=== PATIENT | female | born 1970 | race Hispanic/Latino ===

== ENCOUNTER 2018-09-19 17:19 | Emergency (ER) | payer SELFPAY ==
[2018-09-19] MEDS ORDERED: GUAIFENESIN-DM 200/20 MG 10 ML ONE (17:47)
[2018-09-19] MEDS ORDERED: BENZONATATE 100 MG CAPSULE PO ONE (17:47)
[2018-09-19] MEDS ORDERED: METHYLPREDNISOLONE SOD SUCC 125MG/2ML VIAL ONE (17:47)
[2018-09-19] MEDS ORDERED: IPRATROPIUM/ALBUTEROL SULFATE 3 ML SOLUTION IH ONE (18:04)
== END 2018-09-19 19:28 | disposition home or self-care (01) ==
LOC: EDH 17:19
DX: J20.9 Acute bronchitis, unspecified (principal); E07.9 Disorder of thyroid, unspecified; E11.9 Type 2 diabetes mellitus without complications; Z72.0 Tobacco use
CPT/HCPCS: 71045; 87804 ×2; 94640; 96372; 99284; A4218; J2930

== ENCOUNTER 2018-09-25 20:23 | Emergency (ER) | payer SELFPAY ==
[2018-09-25 21:07] LABS: APPEARANCE,URINE Clear (CLEAR); BILIRUBIN,URINE Negative (NEGATIVE); COLOR,URINE Yellow (YELLOW); GLUCOSE, URINE (UA) Negative (NEGATIVE); KETONES,URINE Negative (NEGATIVE); LEUKOCYTE ESTERASE ,URINE Negative (NEGATIVE); NITRATE,URINE Negative (NEGATIVE); OCCULT BLOOD,URINE Negative (NEGATIVE); PH,URINE 6.5 (5.0-8.0); PROTEIN,URINE Negative (NEGATIVE); UROBILINOGEN,URINE 0.2 mg/dL (0.2-1.0)
[2018-09-25 21:10] LABS: HCG,QUAL RESULT NEGATIVE (NEGATIVE)
[2018-09-25 21:18] LABS: BASOPHILS % (AUTO) 1.8 % (0.0-5.0); EOSINOPHILS % (AUTO) 0.2 % (0.0-8.0); HEMATOCRIT 35.1 % (36-48); LYMPHOCYTES % (AUTO) 32.2 % (21.0-51.0); MEAN CORPUSCULAR HEMOGLOBIN 29.2 pg (27.0-33.0); MEAN CORPUSCULAR HGB CONC 33.2 g/dL (32.0-36.0); MEAN CORPUSCULAR VOLUME 87.8 fL (79-99); MONOCYTES % (AUTO) 6.6 % (3.0-13.0); NEUTROPHILS % (AUTO) 59.2 % (40.0-77.0); PLATELET COUNT (AUTO) 386 K/uL (130-400); RED BLOOD CELL COUNT(AUTO) 3.99 MIL/uL (4.00-5.50); RED CELL DISTRIBUTION WIDTH 14.1 % (11.0-15.5); WHITE BLOOD COUNT (AUTO) 16.3 K/uL (4.8-10.8)
[2018-09-25] MEDS ORDERED: DIPHENHYDRAMINE HCL 25 MG CAPSULE ONE (21:29)
[2018-09-25] MEDS ORDERED: METOCLOPRAMIDE 10 MG TABLET ONE (21:29)
[2018-09-25] MEDS ORDERED: MORPHINE SULFATE 4 MG/1ML SYG ONE (21:30)
[2018-09-25 21:32] LABS: CREATININE 0.8 mg/dL (0.5-1.5)
[2018-09-25 21:41] LABS: ALBUMIN 3.1 g/dL (3.5-5.0); BILIRUBIN,TOTAL 0.4 mg/dL (0.2-1.0); TOTAL PROTEIN, SERUM 7.9 g/dL (6.0-8.3)
[2018-09-25] MEDS ORDERED: SODIUM CHLORIDE 0.9% 1000ML 1,000 ML IV ONE (22:21)
[2018-09-25] MEDS ORDERED: AMOXICILLIN/POTASSIUM CLAV 875-125 TABLET PO ONE (22:22)
== END 2018-09-26 00:39 | disposition home or self-care (01) ==
LOC: EDH 20:23
DX: J01.00 Acute maxillary sinusitis, unspecified (principal); E11.9 Type 2 diabetes mellitus without complications; I10 Essential (primary) hypertension; F41.9 Anxiety disorder, unspecified; Z79.899 Other long term (current) drug therapy; Z98.890 Other specified postprocedural states; Z87.891 Personal history of nicotine dependence
CPT/HCPCS: 36415; 70450; 80053; 81003; 81025; 85025; 85651; 96374; 99284; J2270; J7030; Q0163

== ENCOUNTER 2025-08-24 20:20 | Emergency (ER) | payer SELFPAY ==
[~2025-08-24] VITALS: Ht 160 cm; Wt 90.7 kg
--- NOTE | 2025-08-24 20:33 | EKG ---
[facility] Test Date: 2025-08-24 Test Time: 20:29:57 Pat Name: NELIDA BASS Department: ED Room: Gender: F Telephone Service Adviser: [id number] : 1970 Requested By: PAPA FUNK Order Number: [id number] Reading MD: Jl Prince Measurements Intervals Harris Rate: 78 P: 48 KS: 140 QRS: 18 QRSD: 74 T: 43 QT: 401 QTc: 458 Interpretive Statements Sinus rhythm No previous ECG available for comparison Electronically Signed On 08-25-2025 20:01:27 SERVICE DESK TECHNICIAN by Jl Prince Please click the below link to view image of tracing.
[2025-08-24 20:40] LABS: IMMATURE GRANULOCYTE ABSOLUTE 0.04 K/uL (0-1); NUCLEATED RED BLOOD CELLS 0.0 % (0.0-0.19); PLATELET COUNT (AUTO) 249 K/uL (130-400); RED BLOOD CELL COUNT(AUTO) 4.09 MIL/uL (4.00-5.50); RED CELL DISTRIBUTION WIDTH 13.4 % (11.0-15.5); WHITE BLOOD COUNT (AUTO) 10.8 K/uL (4.8-10.8)
[2025-08-24 20:55] LABS: CREATININE 0.9 mg/dL (0.5-1.0); GLOMERULAR FILTR. RATE CALC 75.0 mL/min (>90); GLUCOSE,RANDOM 205.0 mg/dL (70-105); SODIUM SERUM 135.0 mmol/L (136-145); UREA NITROGEN, BLOOD 13.0 mg/dL (7-18)
[2025-08-24 21:00] LABS: CREATINE KINASE, TOTAL 148.0 U/L (21-232)
[2025-08-24 21:49] LABS: APPEARANCE,URINE CLEAR (CLEAR); GLUCOSE, URINE (UA) NEGATIVE (NEGATIVE); LEUKOCYTE ESTERASE ,URINE NEGATIVE Leu/uL (NEGATIVE); NITRATE,URINE NEGATIVE (NEGATIVE); OCCULT BLOOD,URINE NEGATIVE (NEGATIVE)
[2025-08-24 21:50] LABS: ADD UA MICROSCOPIC NO
--- NOTE | 2025-08-24 22:42 | HMCIMG ---
EXAM: X-Ray Chest, 1 view. CLINICAL HISTORY: Chest pain. COMPARISON: None. FINDINGS: The lungs show no infiltrate or other acute findings. No pleural effusion or pneumothorax. The cardiomediastinal silhouette is within normal limits. No acute osseous abnormality. IMPRESSION: No acute cardiopulmonary pathology is evident. /Tatum
[2025-08-24] MEDS ORDERED: KETO10TA2 PO (23:22)
--- NOTE | 2025-08-24 23:23 | ERN ---
General Chief Complaint: Chest Pain Stated Complaint: CP RADIATING TO NECK AND LEFT SHOULDER. SOB Time Seen by MD: 20:26 Time Seen by Midlevel: 20:26 Source: patient History of Present Illness Initial Comments The patient is a 55-year-old female presenting to the emergency department with left-sided chest pain. That started yesterday and progressively worsened today. Allergies: Coded Allergies: No Known Allergies (Unverified Allergy, Unknown, 08/24/25) Past Medical History Past Medical History: Anxiety, Diabetes-Type II, Hypothyroid Past Surgical History: ROS Dictation CONSTITUTIONAL: Negative except for HPI HEAD/FACE: Negative except for HPI EENT: Negative except for HPI RESPIRATORY: Negative except for HPI GASTROINTESTINAL/ABDOMINAL: Negative except for HPI GENITOURINARY: Negative except for HPI MUSCULOSKELETAL: Negative except for HPI INTEGUMENTARY: Negative except for HPI NEUROLOGICAL/PSYCH: Negative except for HPI HEMATOLOGIC/LYMPHATIC: Negative except for HPI All Systems Negative, Except as noted above. 13 point review of systems assessed and all negative except for above. Physical Exam Physical Exam Dictation Vital Signs reviewed General Appearance: Alert, oriented x 3, no acute distress, well developed, nourished. Head and Face: non-traumatic. Eyes: PERRL, pink conjunctivas, eyelid no trauma, anterior chamber with arcus senilis. Ears: Pinnas intact and no signs of trauma or erythema ear canals clear and no discharge TM no erythema Nose: No discharge, no bleeding. Oropharynx: Mouth normal, tongue pink, pharynx clear,no erythema, tonsils no exudates, no abscesses noted, mucous membrane moist Neck: Supple, non-tender, no thyromegaly, no masses, no JVD, no bruits Breast:Deferred Chest:No tenderness, no crepitus, no paradoxical movement, no retractions Lungs:Clear, well-ventilated, symmetric, no rales, no wheezing, no rhonchi, no stridor, good breath sounds bilaterally Heart: Regular rate, regular rhythm, no murmur, no gallops Vascular: no peripheral edema, Abdomen: Soft, positive bowel sounds, nondistended, no guarding, nontender, no rebound, no masses no hepatomegaly, no splenomegaly, no Beck's sign, no hernias. Rectal: Deferred Genital: Deferred Neurological: Normal speech, motor function intact, sensory function intact Musculoskeletal: Neck nontender, full range of motion, back nontender, full range of motion, Extremities: nontender, full range of motion Skin: Color pink, dry, no turgor, no rash, no lacerations, no abrasions, no contusions. Lymphatic: Deferred Results Laboratory and Microbiology Lab and Micro Result Laboratory Tests Test 08/24/25 20:33 08/24/25 21:41 08/24/25 22:14 White Blood Count 10.8 K/uL (4.8-10.8) Red Blood Count 4.09 MIL/uL (4.00-5.50) Hemoglobin 12.2 g/dL (12.0-16.0) Hematocrit 37.2 % (36-48) Mean Corpuscular Volume 91.0 fL (79-99) Mean Corpuscular Hemoglobin 29.8 pg (27.0-33.0) Mean Corpuscular Hemoglobin Concent 32.8 g/dL (32.0-36.0) Red Cell Distribution Width 13.4 % (11.0-15.5) Platelet Count 249 K/uL (130-400) Mean Platelet Volume 10.5 fL (7.5-10.5) Immature Granulocyte % (Auto) 0.4 % (0-1) Neutrophils (%) (Auto) 55.4 % (40.0-77.0) Lymphocytes (%) (Auto) 36.1 % (21.0-51.0) Monocytes (%) (Auto) 6.5 % (3.0-13.0) Eosinophils (%) (Auto) 1.1 % (0.0-8.0) Basophils (%) (Auto) 0.5 % (0.0-5.0) Neutrophils # (Auto) 6.0 K/uL (1.8-7.7) Lymphocytes # (Auto) 3.9 K/uL (1.0-4.8) Monocytes # (Auto) 0.7 K/uL (0.1-1.0) Eosinophils # (Auto) 0.12 K/uL (0.00-0.70) Basophils # (Auto) 0.05 K/uL (0.00-0.20) Absolute Immature Granulocyte (auto 0.04 K/uL (0-1) Nucleated Red Blood Cells 0.0 % (0.0-0.19) Sodium Level 135 mmol/L (136-145) L Potassium Level 3.8 mmol/L (3.5-5.1) Chloride Level 100 mmol/L (101-111) L Carbon Dioxide Level 27 mmol/L (21-32) Blood Urea Nitrogen 13 mg/dL (7-18) Creatinine 0.9 mg/dL (0.5-1.0) Glomerular Filtration Rate Calc 75 mL/min (>90) Random Glucose 205 mg/dL (70-105) H Total Calcium 9.1 mg/dL (8.5-10.1) Total Creatine Kinase 148 U/L (21-232) Troponin I High Sensitivity < 4 ng/L (4-50) L < 4 ng/L (4-50) L Urine Color LIGHT-YELLOW (YELLOW) Urine Appearance CLEAR (CLEAR) Urine pH 5.5 (5.0-8.0) Urine Specific [place] 1.015 (1.001-1.031) Urine Protein NEGATIVE mg/dL (NEGATIVE) Urine Glucose (UA) NEGATIVE mg/dL (NEGATIVE) Urine Ketones NEGATIVE mg/dL (NEGATIVE) Urine Occult Blood NEGATIVE (NEGATIVE) Urine Nitrate NEGATIVE (NEGATIVE) Urine Bilirubin NEGATIVE mg/dL (NEGATIVE) Urine Urobilinogen 0.2 mg/dL (0.2-1.0) Urine Leukocyte Esterase NEGATIVE Glory/uL Labs Reviewed?: Yes MDM MDM: Differential diagnosis: Acute coronary syndrome, costochondritis, pneumonia, pneumothorax There are no social concerns with this patient. Prescription drug management Prescriptions will include: Toradol Medical management and examination interpretation discussions were had by me with other qualified healthcare professionals as indicated for the patient's care. ED Course Orders Procedure Category Date Status Time Vital Signs Per CPOE 08/24/25 Transmitted Routine 20:22 Chest 1vw RAD 08/24/25 Resulted 20:22 12 Lead Ekg Tracing- EKG 08/24/25 Complete Technical 20:22 Oxygen By Nc/Pulse Ox CPOE 08/24/25 Transmitted 20:22 Maintain Iv CPOE 08/24/25 Transmitted 20:22 Iv Insertion CPOE 08/24/25 Transmitted 20:22 Cardiac Monitoring CPOE 08/24/25 Transmitted 20:22 Pulse Oximetry With CPOE 08/24/25 Transmitted Vs And Prn 20:22 Cbc With Differential LAB 08/24/25 Complete 20:22 Activity: Br W/Brp CPOE 08/24/25 Transmitted With Assist 20:22 Creatine Kinase, Total LAB 08/24/25 Complete 20:22 Troponin I High LAB 08/24/25 Complete Sensitivity 20:22 Urinalysis Profile LAB 08/24/25 Complete 20:22 Basic Metabolic Panel LAB 08/24/25 Complete 20:22 Ketorolac PHA 08/24/25 Complete Tromethamine 15mg/Ml 22:30 Troponin I High LAB 08/24/25 Complete Sensitivity 22:03 Current Medications Medications (Trade) Dose Ordered Sig/Familia Route PRN Reason Start Time Stop Time Status Last Admin Dose Admin Ketorolac Tromethamine (toRADol) 15 mg ONCE ONCE IV 08/24/25 22:30 08/24/25 22:31 DC 08/24/25 22:11 Vital Signs Date Time Temp Pulse Resp B/P (MAP) Pulse Ox O2 Delivery O2 Flow Rate FiO2 08/24/25 20:45 97.7 79 15 109/64 97 Room Air* 0 21 08/24/25 20:22 97.7 83 28 131/74 98 Room Air HEART Score Response (Comments) Value History: Low suspicion (0) 0 EKG: Normal 0 Age: 45-65yrs (+1) 1 Risk Factors: No known risk factors (0) 0 Initial Troponin: Normal limit (0) 0 HEART Score Risk: Low Risk for MACE (1-3) Total 1 DX & DISP Disposition: Discharge Departure Impression: Primary Impression: Non-cardiac chest pain Condition: Stable Scripts Ketorolac Tromethamine (Ketorolac Tromethamine) 10 Mg Tablet 1 TAB PO BID for pain for 5 Days, #10 TAB 0 Refills Prov: SASHA MATHEW PAC 08/24/25 Additional Instructions: You were evaluated today for chest pain. Your evaluation included an EKG, chest x-ray, and blood work, including cardiac enzyme testing (troponins). All results were normal. There were no signs of a heart attack or other life- threatening conditions at this time. Your chest pain does not appear to be caused by your heart. Many other things can cause chest discomfort Follow up with your primary care provider within the next 3-5 days for re- evaluation. You may also choose to follow up with a underwriting manager if symptoms persist or if you have a history heart disease. Rest and avoid heavy physical exertion until cleared by your doctor. Although your evaluation today was normal, some heart or lung conditions can develop later. If you experience new or worsening pain, please return to the ER for re-evaluation per Referrals: SELF,REFERRAL (PCP) Time of Disposition: 23:21 I have reviewed the case, and I agree with, Diagnosis and Plan I performed the substantive portion of the visit. I have reviewed and personally made and approve the management plan that is documented in the note by myself or the MANNY. I acknowledge for responsibility for the patient's management plan. SASHA MATHEW PAC Aug 24, 2025 23:23
[2025-08-24 23:36] VITALS: BP 110/60; PULSE 75; RESP 15; TEMP 98; O2SAT 97
== END 2025-08-24 23:56 | disposition home or self-care (01) ==
LOC: EDH 20:20
DX: R07.89 Other chest pain (principal); E03.9 Hypothyroidism, unspecified; E11.9 Type 2 diabetes mellitus without complications; F41.9 Anxiety disorder, unspecified; Z98.890 Other specified postprocedural states
CPT/HCPCS: 99285; 96374; 71045; 82550; 84484 ×2; 80048; 85025; 81003; 36415; 93005; J1885